=== PATIENT | female | born 1960 | race American Indian/Alaskan Native ===

== ENCOUNTER 2022-04-13 20:58 | Emergency (ER) | payer OTHER ==
[~2022-04-13] VITALS: Ht 162.6 cm; Wt 99.3 kg
[~2022-04-13 20:58] MED LIST: ALBUTEROL SULF8.5 GM INH; CLARITIN10 M2 PO; LANTUS SOL100 UNIT/1 SUB-Q; LOSARTAN POTASS25 MG PO; METFORMIN HCL500 MG PO; NOVOLIN N100 UNIT/2
[2022-04-13] MEDS ORDERED: OZEMPIC1 MG/0.71 SUB-Q (23:52)
[2022-04-13] MEDS ORDERED: CRESTOR20 MG PO (23:54)
[2022-04-14] MEDS ORDERED: CLINDAMYCIN HC300 MG PO (01:11)
== END 2022-04-14 01:45 | disposition home or self-care (01) ==
LOC: ED 20:58
DX: K04.7 Periapical abscess without sinus (principal); E11.9 Type 2 diabetes mellitus without complications; Z91.040 Latex allergy status; Z79.899 Other long term (current) drug therapy; Z79.84 Long term (current) use of oral hypoglycemic drugs; Z79.4 Long term (current) use of insulin
CPT/HCPCS: 99282